=== PATIENT | male | born 1995 | race Caucasian/White ===

== ENCOUNTER → 2025-04-18 14:32 | Outpatient (REF) | payer OTHER, SELFPAY | LOC: RAD 14:32 | PROVIDERS: FAMILY PHYSICIAN Physician Assistant Medical | DX: K21.9 Gastro-esophageal reflux disease without esophagitis (principal); R10.9 Unspecified abdominal pain; R14.0 Abdominal distension (gaseous); K59.09 Other constipation; G89.29 Other chronic pain | CPT/HCPCS: 74177; Q9967 ==